=== PATIENT | female | born 1995 | race Caucasian/White ===

== ENCOUNTER → 2017-02-17 | Outpatient (CLI) | payer BC, OTHER ==
[2017-02-17 11:48] LABS: RED BLOOD COUNT 3.9 M/UL (4.00-5.10); WHITE BLOOD COUNT 2.2 K/UL (4.5-11.0)
[2017-02-17 12:08] LABS: BUN/CREATININE RATIO 20 (0-10)
== END ==
LOC: OPSV 10:58
PROVIDERS: Pediatrics Pediatric Hematology-Oncology
DX: C40.90 Malignant neoplasm of unspecified bones and articular cartilage of unspecified limb (principal)
CPT/HCPCS: 36591; 80053; 85025; 96360; J1642; J7030